=== PATIENT | female | born 1990 | race Caucasian/White ===

== ENCOUNTER 2020-05-15 23:31 | Inpatient (IN) | payer SELFPAY ==
[2020-05-16] MEDS ORDERED: Oxytocin/Lactated Ringers 20 UNIT/1,000 ML BAG IV SCH
[2020-05-16] MEDS ORDERED: Lidocaine 1% 50 ML MDV INJECT ONE
[2020-05-16] MEDS ORDERED: Lidocaine 1.5% with EPINEPHrine 1:200,000 5 ML Amp ONE
[2020-05-16] MEDS ORDERED: Calcium Carbonate 500 MG Tab.Chew PO PRN
[2020-05-16] MEDS ORDERED: Sodium Chloride 0.9% 10 ML Syringe FLUSH PRN
[2020-05-16] MEDS ORDERED: Ampicillin 2 GM in Sodium Chloride 0.9% 100 ML IV ONE ×2
[2020-05-16] MEDS ORDERED: Nalbuphine 10 MG/ML Syringe IVPUSH PRN
[2020-05-16] MEDS: Lactated Ringers 1,000 ML IV SCH ×4 (00:19→09:57)
[2020-05-16] MEDS ORDERED: ePHEDrine 50 MG/ML SDV IVPUSH PRN (01:01)
[2020-05-16] MEDS ORDERED: diphenhydrAMINE 50 MG/ML SDV IVPUSH PRN (01:01)
[2020-05-16] MEDS ORDERED: Bupivacaine/fentaNYL/NS 100 ML Bag EPIDUR PRN (01:01)
[2020-05-16] MEDS ORDERED: fentaNYL 100 MCG/2 ML SDV EPIDUR PRN (01:01)
--- NOTE | 2020-05-16 01:03 | PCM.PREANE ---
Preanesthetic Assessment - Procedure Proposed Procedure: Continuous labor epidural - Anesthesia/Transfusion/Family Hx Anesthesia History: Prior Anesthesia Without Reaction Transfusion History: No Prior Transfusion(s) - Review of Systems General: No Symptoms Pulmonary: No Symptoms Cardiovascular: No Symptoms Gastrointestinal: No Symptoms Neurological: No Symptoms Other: Reports: None - Physical Assessment Vital Signs: Last Vital Signs Temp 97.9 F 05/15/20 23:41 Pulse 98 05/15/20 23:41 Resp 16 05/15/20 23:41 BP 116/79 05/15/20 23:41 Pulse Ox 100 05/15/20 23:41 Height: 1.68 m Weight: 83.007 kg ASA Class: 2 Mental Status: Alert & Oriented x3 Airway Class: Mallampati = 2 Dentition: Reports: Normal Dentition Thyro-Mental Finger Breadths: 3 Mouth Opening Finger Breadths: 3 ROM/Head Extension: Full Lungs: Clear to Auscultation, Normal Respiratory Effort Cardiovascular: Regular Rate, Regular Rhythm - Lab Values: Laboratory Last Values WBC 12.95 K/mm3 (3.98-10.04) H 05/16/20 00:15 RBC 4.33 M/mm3 (3.98-5.22) 05/16/20 00:15 Hgb 10.4 gm/dl (11.2-15.7) L 05/16/20 00:15 Hct 32.7 % (34.1-44.9) L 05/16/20 00:15 MCV 75.5 fl (79.4-94.8) L 05/16/20 00:15 MCH 24.0 pg (25.6-32.2) L 05/16/20 00:15 MCHC 31.8 g/dl (32.2-35.5) L 05/16/20 00:15 RDW Std Deviation 41.1 fL (36.4-46.3) 05/16/20 00:15 Plt Count 326 K/mm3 (182-369) 05/16/20 00:15 MPV 9.7 fl (9.4-12.3) 05/16/20 00:15 Neut % (Auto) 70.6 % (34.0-71.1) 05/16/20 00:15 Lymph % (Auto) 19.6 % (19.3-51.7) 05/16/20 00:15 [place] % (Auto) 8.0 % (4.7-12.5) 05/16/20 00:15 Eos % (Auto) 1.2 (0.7-5.8) 05/16/20 00:15 Baso % (Auto) 0.3 % (0.1-1.2) 05/16/20 00:15 Neut # (Auto) 9.14 K/mm3 (1.56-6.13) H 05/16/20 00:15 Lymph # (Auto) 2.54 K/mm3 (1.18-3.74) 05/16/20 00:15 [place] # (Auto) 1.03 K/mm3 (0.24-0.36) H 05/16/20 00:15 Eos # (Auto) 0.16 K/mm3 (0.04-0.36) 05/16/20 00:15 Baso # (Auto) 0.04 K/mm3 (0.01-0.08) 05/16/20 00:15 COVID-19 ([facility]) Negative (NEGATIVE) 05/16/20 00:25 Blood Type A POSITIVE 05/16/20 00:15 - Allergies Allergies/Adverse Reactions: Allergies Allergy/AdvReac Type Severity Reaction Status Date / Time shellfish derived Allergy Anaphylactic Verified 05/16/20 00:05 Shock - Acknowledgements Anesthesia Type Planned: Epidural Pt an Appropriate Candidate for the Planned Anesthesia: Yes Alternatives and Risks of Anesthesia Discussed w Pt/Guardian: Yes Pt/Guardian Understands and Agrees with Anesthesia Plan: Yes 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: - Infectious Disease History Infectious Disease History: Reports: Chicken Pox - Past Surgical History HEENT Surgical History: Reports: Oral Surgery - SUBSTANCE USE Smoking Status *Q: Never Smoker Recreational Drug Use History: No - HOME MEDS Home Medications: Home Meds Ondansetron [Zofran ODT] 8 mg PO 05/15/20 [History] Vits #93/Iron Fum/FA [ Formula Tablet] 05/15/20 [History] - CURRENT (IN HOUSE) MEDS Current Meds: Current Medications Calcium Carbonate/Glycine (Tums) 1,000 mg PO Q2H PRN PRN Reason: Indigestion Lactated Ringer's (Ringers, Lactated) 1,000 mls @ 100 mls/hr IV ASDIRECTED TARAS Last Admin: 05/16/20 01:00 Dose: 100 mls/hr Documented by: Ampicillin Sodium 1 gm/ Sodium (Chloride) 100 mls @ 200 mls/hr IV Q4H TARAS Oxytocin/Lactated Ringer's (Pitocin In Lr 20 Units/1,000 Ml) 20 unit in 1,000 mls @ 500 mls/hr IV .CONTINUOUS TARAS Nalbuphine HCl (Nubain) 10 mg IVPUSH Q2H PRN PRN Reason: Pain Ondansetron HCl (Zofran) 4 mg IVPUSH Q4H PRN PRN Reason: Nausea/Vomiting Sodium Chloride (Saline Flush) 10 ml FLUSH ASDIRECTED PRN PRN Reason: Keep Vein Open Discontinued Medications Ampicillin Sodium 2 gm/ Sodium (Chloride) 100 mls @ 200 mls/hr IV ONETIME ONE Stop: 05/16/20 00:29 Last Admin: 05/16/20 00:19 Dose: 200 mls/hr Documented by: Lidocaine HCl (Xylocaine 1%) 10 ml INJECT ONETIME ONE Stop: 05/16/20 00:01
[2020-05-16] MEDS: Ampicillin 1 GM in Sodium Chloride 0.9% 100 ML IV SCH ×2 (03:57→08:04)
--- NOTE | 2020-05-16 06:56 | PCM.LDHP ---
L&D History of Present Illness - General Date of Service: 05/16/20 Admit Problem/Dx: Patient Status Order with Admit Dx/Problem 05/15/20 23:41 Patient Status [ADT] Routine 05/16/20 00:01 Patient Status [ADT] Routine Admission Diagnosis/Problem Admission Diagnosis/Problem 05/16/20 06:51 Source of Information: Patient History Limitations: Reports: No Limitations - History of Present Illness Introduction:: 29-year-old -0-0-1 NELLIE 05/23/2020 presented to labor and delivery just before midnight on 05/15/2020 at 38 weeks and 6 days, now 39 weeks 0 days. Patient complaining contractions was 4 cm dilated on presentation to labor and delivery and RN check just now showed cervix 6 centimeters dilated, talk with Dr. Ramos she will see patient as call schedule ends at 0700 hrs. Blood type a positive antibody screen negative on 10/29/2019 hemoglobin 14.6 hematocrit 41.1 and platelets 290,000, rubella positive, syphilis nonreactive, hepatitis B surface antigen nonreactive HIV nonreactive chlamydia probe GC probe negative 02/22/2020 hemoglobin 11.7 platelets 290,001-hour OB glucose screen 117 antibody screen negative GBS positive on 05/09/2020 patient has been given GBS prophylaxis. In labor and delivery. 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: - Infectious Disease History Infectious Disease History: Reports: Chicken Pox - Past Surgical History HEENT Surgical History: Reports: Oral Surgery Social & Family History - Tobacco Use Smoking Status *Q: Never Smoker - Recreational Drug Use Recreational Drug Use: No H&P Review of Systems - Review of Systems: Review Of Systems: See Below General: Reports: No Symptoms HEENT: Reports: No Symptoms Pulmonary: Reports: No Symptoms Cardiovascular: Reports: No Symptoms Gastrointestinal: Reports: No Symptoms Genitourinary: Reports: No Symptoms Musculoskeletal: Reports: No Symptoms Skin: Reports: No Symptoms Psychiatric: Reports: No Symptoms Neurological: Reports: No Symptoms Hematologic/Lymphatic: Reports: No Symptoms Immunologic: Reports: No Symptoms L&D Exam - Exam Exam: See Below - Vital Signs Vital Signs: Last Vital Signs Temp 97.9 F 05/15/20 23:41 Pulse 98 05/15/20 23:41 Resp 16 05/15/20 23:41 BP 116/79 05/15/20 23:41 Pulse Ox 100 05/15/20 23:41 Weight: 183 lb - OB Specific Fundal Height In cm: 39 Contraction Intensity: Mild to Moderate Movement: Active Heart Tones: Present Heart Tones per Min: 140 Heart Rate (FHR) Variability: Moderate (6-25 bmp) Presentation: Vertex - Fulton Score Fulton Score Cervix Position: Posterior Fulton Score Consistency: Medium [place] Score Effacement: >80% [place]on Score Dilation: 3-4 cm Fulton Score 's Station: -1 ,0 Fulton Score Total: 8 - Exam General: Alert, Oriented HEENT: Conjunctiva Clear, Mucosa Moist & [place], Pupils Equal Neck: Supple, Trachea Midline Lungs: Clear to Auscultation, Normal Respiratory Effort Cardiovascular: Regular Rate, Regular Rhythm GI/Abdominal Exam: Normal Bowel Sounds Extremities: Normal Inspection, Non-Tender, No Pedal Edema, Normal Capillary Refill Skin: Warm, Dry, Intact Psychiatric: Alert, Normal Affect, Normal Mood - Patient Data Lab Results Last 24 hrs: Laboratory Results - last 24 hr 05/16/20 05/16/20 05/16/20 Range/Units 00:15 00:15 00:25 WBC 12.95 H (3.98-10.04) K/mm3 RBC 4.33 (3.98-5.22) M/mm3 Hgb 10.4 L (11.2-15.7) gm/dl Hct 32.7 L (34.1-44.9) % MCV 75.5 L (79.4-94.8) fl MCH 24.0 L (25.6-32.2) pg MCHC 31.8 L (32.2-35.5) g/dl RDW Std Deviation 41.1 (36.4-46.3) fL Plt Count 326 (182-369) K/mm3 MPV 9.7 (9.4-12.3) fl Neut % (Auto) 70.6 (34.0-71.1) % Lymph % (Auto) 19.6 (19.3-51.7) % [place] % (Auto) 8.0 (4.7-12.5) % Eos % (Auto) 1.2 (0.7-5.8) Baso % (Auto) 0.3 (0.1-1.2) % Neut # (Auto) 9.14 H (1.56-6.13) K/mm3 Lymph # (Auto) 2.54 (1.18-3.74) K/mm3 [place] # (Auto) 1.03 H (0.24-0.36) K/mm3 Eos # (Auto) 0.16 (0.04-0.36) K/mm3 Baso # (Auto) 0.04 (0.01-0.08) K/mm3 COVID-19 ([facility]) Negative (NEGATIVE) Blood Type A POSITIVE Gel Antibody Screen Negative Result Diagrams: 05/16/20 00:15 - Problem List (1) 39 weeks gestation of SNOMED Code(s): 41411043 ICD Code: Z3A.39 - 39 WEEKS GESTATION OF Status: Acute Current Visit: Yes (2) Carrier of group B Streptococcus SNOMED Code(s): 7728138424244 ICD Code: Z22.330 - CARRIER OF GROUP B STREPTOCOCCUS Status: Acute Current Visit: Yes Problem List Initiated/Reviewed/Updated: No Orders Last 24hrs: Active Orders 24 hr Category Date Time Status Patient Status [ADT] Routine ADT 05/16/20 00:01 Active Activity as Tolerated [RC] PFP Care 05/16/20 00:00 Active Communication Order [RC] ASDIRECTED Care 05/16/20 00:00 Active Heart Tones [RC] ASDIRECTED Care 05/16/20 00:02 Active Non Stress Test [RC] PER UNIT ROUTINE Care 05/15/20 23:41 Active Notify Provider [RC] ASDIRECTED Care 05/16/20 01:01 Active Notify Provider [RC] PFP Care 05/16/20 00:00 Active Notify Provider [RC] PRN Care 05/16/20 00:00 Active Peripheral IV Care [RC] . DIRECTED Care 05/16/20 00:02 Active Vital Signs [RC] PER UNIT ROUTINE Care 05/15/20 23:41 Active Regular Diet [DIET] Diet 05/16/20 Breakfast Active PATIENT RETYPE [BBK] Routine Lab 05/16/20 01:00 Ordered RAPID PLASMA REAGIN,RPR [CHEM] Routine Lab 05/16/20 00:15 Received Ampicillin 1 gm Med 05/16/20 04:00 Active Sodium Chloride 0.9% [Normal Saline] 100 ml IV Q4H Bupivacaine/fentaNYL/NS [fentaNYL/Bupivacaine/NS 2 MCG- Med 05/16/20 01:01 Active 0.125% 100 ML] 100 ml EPIDUR ASDIRECTED PRN Calcium Carbonate [Tums] Med 05/16/20 00:00 Active 1,000 mg PO Q2H PRN Lactated Ringers [Ringers, Lactated] 1,000 ml Med 05/16/20 00:00 Active IV ASDIRECTED Nalbuphine [Nubain] Med 05/16/20 00:00 Active 10 mg IVPUSH Q2H PRN Ondansetron [Zofran] Med 05/16/20 00:00 Active 4 mg IVPUSH Q4H PRN Oxytocin/Lactated Ringers [Pitocin in LR 20 Units/1,000 Med 05/16/20 00:00 Active ML] 20 unit in 1,000 ml IV .CONTINUOUS Sodium Chloride 0.9% [Saline Flush] Med 05/16/20 00:00 Active 10 ml FLUSH ASDIRECTED PRN diphenhydrAMINE [Benadryl] Med 05/16/20 01:01 Active 25 mg IVPUSH Q6H PRN ePHEDrine [ePHEDrine sulfate] Med 05/16/20 01:01 Active 5 mg IVPUSH ASDIRECTED PRN fentaNYL [Sublimaze] Med 05/16/20 01:01 Active 100 mcg EPIDUR Q3H PRN Electronic Heart Tones Ext w TOCO [WOMSER] Oth 05/16/20 00:00 Ordered Routine Electronic Heart Tones Internal [WOMSER] Per Unit Oth 05/16/20 00:00 Ordered Routine Peripheral IV Insertion Adult [OM.PC] Routine Oth 05/16/20 00:00 Ordered Resuscitation Status Routine Resus Stat 05/15/20 23:41 Ordered Medication Orders Calcium Carbonate/Glycine (Tums) 1,000 mg PO Q2H PRN PRN Reason: Indigestion Diphenhydramine HCl (Benadryl) 25 mg IVPUSH Q6H PRN PRN Reason: pruritis Ephedrine Sulfate (Ephedrine Sulfate) 5 mg IVPUSH ASDIRECTED PRN PRN Reason: Hypotension Fentanyl (Sublimaze) 100 mcg EPIDUR Q3H PRN PRN Reason: Pain Last Admin: 05/16/20 01:15 Dose: 100 mcg Documented by: JUAN FRANCISCO Fentanyl/Bupivacaine HCl (Fentanyl/Bupivacaine/Ns 2 Mcg-0.125% 100 Ml) 100 ml EPIDUR ASDIRECTED PRN PRN Reason: Pain Last Admin: 05/16/20 01:14 Dose: 100 ml Documented by: JUAN FRANCISCO Lactated Ringer's (Ringers, Lactated) 1,000 mls @ 100 mls/hr IV ASDIRECTED TARAS Last Admin: 05/16/20 01:55 Dose: 100 mls/hr Documented by: JUAN FRANCISCO Infusion: 05/16/20 01:55 Dose: 100 mls/hr Documented by: JUAN FRANCISCO Admin: 05/16/20 01:00 Dose: 100 mls/hr Documented by: JUAN FRANCISCO Infusion: 05/16/20 01:00 Dose: 100 mls/hr Documented by: JUAN FRANCISCO Admin: 05/16/20 00:19 Dose: 100 mls/hr Documented by: JUAN FRANCISCO Ampicillin Sodium 1 gm/ Sodium (Chloride) 100 mls @ 200 mls/hr IV Q4H [facility] Last Admin: 05/16/20 03:57 Dose: 200 mls/hr Documented by: JUAN FRANCISCO Oxytocin/Lactated Ringer's (Pitocin In Lr 20 Units/1,000 Ml) 20 unit in 1,000 mls @ 500 mls/hr IV .CONTINUOUS TARAS Nalbuphine HCl (Nubain) 10 mg IVPUSH Q2H PRN PRN Reason: Pain Ondansetron HCl (Zofran) 4 mg IVPUSH Q4H PRN PRN Reason: Nausea/Vomiting Sodium Chloride (Saline Flush) 10 ml FLUSH ASDIRECTED PRN PRN Reason: Keep Vein Open Plan labor and delivery, patient turned over to Dr. Ramos.
[2020-05-16] MEDS ORDERED: Oxytocin/Lactated Ringers 10 UNIT/1,000 ML BAG IV SCH ×2 (08:30→10:00)
[2020-05-16] MEDS ORDERED: ceFAZolin 2 GM in Premix Bag 1 BAG IV ONE (10:52)
--- NOTE | 2020-05-16 10:54 | PCM.DEL ---
L & D Note - General Info Date of Service: 05/16/20 - Delivery Note Labor: Spontaneous Delivery Outcome: Livebirth Delivery Method: Spontaneous Vaginal Delivery-Single Delivery Mode: Spontaneous Presentation: Left Occiput Anterior (BUCK) Nuchal Cord: None Anesthesia Type: Epidural Amniotic Fluid Description: Clear Episiotomy Type: None Laceration: 2nd Degree Suture type: Vicryl Suture size: 2-0 Placenta: Manual Removal Cord: 3 Vessels Estimated Blood Loss: 200 Resuscitation Needed: Yes [place]: Bulb Syringe, Stimulated, Warmed, Herreid Used, Warmer Used Delivery Comments (Free Text/Narrative):: Patient found to be complete and began pushing. With maternal pushing effort head delivered from BUCK presentation. No nuchal cord present. With gentle downward traction shoulders and body delivered. Infant placed on maternal abdomen. Cord clamped and cut. Cord blood obtained. Inspection of perineum showed 2nd degree laceration. This was repaired with a 2-0 vicryl in typical fashion. After about 20 minutes placenta had not yet delivered. Pitocin stopped. Around 25 minutes after delivery manual extraction of placenta performed. All of placenta able to be removed. Patient given 2 grams of ancef to cover manual removal. Pitocin restarted - General Info Date of Service: 05/16/20 - Patient Data Vitals - Most Recent: Last Vital Signs Temp 36.6 C 05/15/20 23:41 Pulse 98 05/15/20 23:41 Resp 16 05/15/20 23:41 BP 116/79 05/15/20 23:41 Pulse Ox 100 05/15/20 23:41 Weight - Most Recent: 83.007 kg I&O - Last 24 Hours: Intake & Output 05/15/20 05/16/20 05/16/20 22:59 06:59 14:59 Intake Total 2200 60 Balance 2200 60 - Problem List & Annotations (1) 39 weeks gestation of SNOMED Code(s): 56281819 Code(s): Z3A.39 - 39 WEEKS GESTATION OF Status: Acute Current Visit: Yes (2) Carrier of group B Streptococcus SNOMED Code(s): 1034482785909 Code(s): Z22.330 - CARRIER OF GROUP B STREPTOCOCCUS Status: Acute Current Visit: Yes (3) Retained placenta SNOMED Code(s): 955433700 Code(s): O73.0 - RETAINED PLACENTA WITHOUT HEMORRHAGE Status: Acute Curre nt Visit: Yes Qualifiers: Retained placenta detail: complete placenta Qualified Code(s): O73.0 - Retained placenta without hemorrhage (4) Vaginal delivery SNOMED Code(s): 250311545 Code(s): O80 - ENCOUNTER FOR FULL-TERM UNCOMPLICATED DELIVERY Status: Acute Current Visit: Yes - Problem List Review Problem List Initiated/Reviewed/Updated: Yes - My Orders Last 24 Hours: My Active Orders 05/16/20 08:30 Oxytocin/Lactated Ringers [Pitocin in LR 10 Units/1,000 ML] 10 unit in 1,000 ml IV TITRATE 05/16/20 10:00 Oxytocin/Lactated Ringers [Pitocin in LR 10 Units/1,000 ML] 10 unit in 1,000 ml IV ASDIRECTED 05/16/20 10:52 Patient Status Manage Transfer [TRANSFER] Routine ceFAZolin [Ancef] 2 gm Premix Bag 1 bag IV ONETIME - Assessment Assessment:: PPD#0 - Plan Plan:: * Routine cares * Ancef given for placenta removal. Monitor bleeding * Breast feeding * Discharge home in 1-2 days
[2020-05-16] MEDS ORDERED: ceFAZolin/Dextrose,Iso-Osmotic 2 GM/50 ML Duplex Bag IV ONE (10:59)
[2020-05-16] MEDS ORDERED: Benzocaine/Menthol 20%-0.5% Spray 56 GM Canister TOP PRN (11:01)
[2020-05-16] MEDS ORDERED: Docusate Sodium 100 MG Cap PO PRN (11:01)
[2020-05-16] MEDS ORDERED: Acetaminophen 325 MG Tab PO PRN (11:01)
[2020-05-16] MEDS ORDERED: Ondansetron 4 MG/2 ML SDV IVPUSH PRN ×2 (12:02)
[2020-05-16] MEDS ORDERED: Ondansetron 4 MG/2 ML SDV ONE (12:03)
[2020-05-16] MEDS: Witch Hazel Medicated Pads 40/Jar TOP PRN (13:43)
[2020-05-16] MEDS: Ibuprofen 600 MG Tab PO PRN (17:50)
[2020-05-17] MEDS: Ibuprofen 600 MG Tab PO PRN (06:16)
--- NOTE | 2020-05-17 06:58 | PCM.DCSUM1 ---
Discharge Summary - Discharge Data Discharge Date: 05/17/20 Discharge Disposition: Home, Self-Care 01 Condition: Good - Referral to Home Health Primary Care Physician: Marc Chadwick MD - Discharge Diagnosis/Problem(s) (1) 39 weeks gestation of SNOMED Code(s): 09761327 ICD Code: Z3A.39 - 39 WEEKS GESTATION OF Status: Acute Current Visit: Yes (2) Carrier of group B Streptococcus SNOMED Code(s): 9792293925121 ICD Code: Z22.330 - CARRIER OF GROUP B STREPTOCOCCUS Status: Acute Current Visit: Yes (3) Retained placenta SNOMED Code(s): 616229977 ICD Code: O73.0 - RETAINED PLACENTA WITHOUT HEMORRHAGE Status: Acute Current Visit: Yes Qualifiers: Retained placenta detail: complete placenta Qualified Code(s): O73.0 - Retained placenta without hemorrhage (4) Vaginal delivery SNOMED Code(s): 785066531 ICD Code: O80 - ENCOUNTER FOR FULL-TERM UNCOMPLICATED DELIVERY Status: Acute Current Visit: Yes - Patient Summary/Data Complications: None Consults: None Recommended Follow-up Testing/Procedures: Follow up in 3 weeks for check Hospital Course: 29 y/o at 38 6/7 wks who presented in labor. Progressed well to complete dilation and had uncomplicated vaginal delivery. Did, however, have a retained placenta which required manual removal. See delivery note. did well and was discharged home on PPD#1 - Patient Instructions Diet: Regular Diet as Tolerated Activity: As Tolerated Activity, Other: Pelvic rest for 6 weeks Driving: May Drive Today Showering/Bathing: May Shower Showering/Bathing, Other: May Bathe Notify Provider of: Fever, Increased Pain, Swelling and Redness, Drainage, Nausea and/or Vomiting - Discharge Plan *PRESCRIPTION DRUG MONITORING PROGRAM REVIEWED*: No *COPY OF PRESCRIPTION DRUG MONITORING REPORT IN PATIENT PAIGE: No Home Medications: Home Meds Vits #93/Iron Fum/FA [ Formula Tablet] 05/15/20 [History] Acetaminophen [Tylenol] 650 mg PO Q4H PRN tablet 05/17/20 [Rx] Ibuprofen [Motrin] 600 mg PO Q4H PRN tablet 05/17/20 [Rx] Referrals: June Ramos MD [Physician] - (3 weeks for check - can be telehealth) - Discharge Summary/Plan Comment DC Time >30 min.: No - Patient Data Vitals - Most Recent: Last Vital Signs Temp 36.5 C 05/17/20 04:15 Pulse 67 05/17/20 04:15 Resp 14 05/17/20 04:15 BP 117/73 05/17/20 04:15 Pulse Ox 96 05/17/20 04:15 Weight - Most Recent: 83.007 kg I&O - Last 24 hours: Intake & Output 05/16/20 05/16/20 05/17/20 14:59 22:59 06:59 Intake Total 300 Balance 300 Lab Results - Last 24 hrs: Laboratory Results - last 24 hr 05/16/20 Range/Units 00:15 RPR Non-reactive (NONREACTIVE) Med Orders - Current: Current Medications Acetaminophen (Tylenol) 650 mg PO Q4H PRN PRN Reason: mild pain or fever Last Admin: 05/16/20 21:26 Dose: 650 mg Documented by: Benzocaine/Menthol (Dermoplast Pain Relief [place]) 0 gm TOP ASDIRECTED PRN PRN Reason: Perineal Comfort Measure Last Admin: 05/16/20 13:43 Dose: 56 gm Documented by: Docusate Sodium (Colace) 100 mg PO BID PRN PRN Reason: Constipation Last Admin: 05/17/20 06:16 Dose: 100 mg Documented by: Ibuprofen (Motrin) 600 mg PO Q4H PRN PRN Reason: Mild pain or fever Last Admin: 05/17/20 06:16 Dose: 600 mg Documented by: Ondansetron HCl (Zofran) 4 mg IVPUSH Q8H PRN PRN Reason: Nausea Last Admin: 05/16/20 12:09 Dose: 4 mg Documented by: Tiffany Valadez (Tucks) 1 pad TOP ASDIRECTED PRN PRN Reason: Perineal Comfort Measure Last Admin: 05/16/20 13:43 Dose: 1 container Documented by: Discontinued Medications Calcium Carbonate/Glycine (Tums) 1,000 mg PO Q2H PRN PRN Reason: Indigestion Cefazolin Sodium/Dextrose (Ancef) Confirm Administered Dose 2 gm IV .STK-MED ONE Stop: 05/16/20 11:00 Last Admin: 05/16/20 13:44 Dose: Not Given Documented by: Diphenhydramine HCl (Benadryl) 25 mg IVPUSH Q6H PRN PRN Reason: pruritis Ephedrine Sulfate (Ephedrine Sulfate) 5 mg IVPUSH ASDIRECTED PRN PRN Reason: Hypotension Fentanyl (Sublimaze) 100 mcg EPIDUR Q3H PRN PRN Reason: Pain Last Admin: 05/16/20 01:15 Dose: 100 mcg Documented by: Fentanyl/Bupivacaine HCl (Fentanyl/Bupivacaine/Ns 2 Mcg-0.125% 100 Ml) 100 ml EPIDUR ASDIRECTED PRN PRN Reason: Pain Last Admin: 05/16/20 01:14 Dose: 100 ml Documented by: Lactated Ringer's (Ringers, Lactated) 1,000 mls @ 100 mls/hr IV ASDIRECTED TARAS Last Admin: 05/16/20 09:57 Dose: 100 mls/hr Documented by: Ampicillin Sodium 2 gm/ Sodium (Chloride) 100 mls @ 200 mls/hr IV ONETIME ONE Stop: 05/16/20 00:29 Last Admin: 05/16/20 00:19 Dose: 200 mls/hr Documented by: Ampicillin Sodium 1 gm/ Sodium (Chloride) 100 mls @ 200 mls/hr IV Q4H TARAS Last Admin: 05/16/20 08:04 Dose: 200 mls/hr Documented by: Oxytocin/Lactated Ringer's (Pitocin In Lr 20 Units/1,000 Ml) 20 unit in 1,000 mls @ 500 mls/hr IV .CONTINUOUS TARAS Oxytocin/Lactated Ringer's (Pitocin In Lr 10 Units/1,000 Ml) 10 unit in 1,000 mls @ 12 mls/hr IV TITRATE TARAS; Protocol Oxytocin/Lactated Ringer's (Pitocin In Lr 10 Units/1,000 Ml) 10 unit in 1,000 mls @ 3,000 mls/hr IV ASDIRECTED TARAS Last Admin: 05/16/20 10:41 Dose: 500 munits/min, 3,000 mls/hr Documented by: Cefazolin Sodium/Dextrose 2 gm (/ Premix) 50 mls @ 100 mls/hr IV ONETIME ONE Stop: 05/16/20 11:21 Last Admin: 05/16/20 11:06 Dose: 100 mls/hr Documented by: Lidocaine HCl (Xylocaine 1%) 10 ml INJECT ONETIME ONE Stop: 05/16/20 00:01 Last Admin: 05/16/20 13:44 Dose: Not Given Documented by: Lidocaine/Epinephrine (Xylocaine-Mpf 1.5% W/Epinephrine 1:200,000) 5 ml .ROUTE .STK-MED ONE Stop: 05/16/20 00:01 Nalbuphine HCl (Nubain) 10 mg IVPUSH Q2H PRN PRN Reason: Pain Ondansetron HCl (Zofran) 4 mg IVPUSH Q4H PRN PRN Reason: Nausea/Vomiting Ondansetron HCl (Zofran) Confirm Administered Dose 4 mg .ROUTE .STK-MED ONE Stop: 05/16/20 12:04 Last Admin: 05/16/20 13:43 Dose: Not Given Documented by: Sodium Chloride (Saline Flush) 10 ml FLUSH ASDIRECTED PRN PRN Reason: Keep Vein Open
--- NOTE | 2020-05-17 06:58 | PCM.PNPP ---
- General Info Date of Service: 05/17/20 Functional Status: Reports: Pain Controlled, Tolerating Diet, Ambulating, Urinating - Review of Systems General: Reports: No Symptoms Pulmonary: Reports: No Symptoms Cardiovascular: Reports: No Symptoms Gastrointestinal: Reports: No Symptoms Genitourinary: Reports: No Symptoms Musculoskeletal: Reports: No Symptoms Neurological: Reports: No Symptoms - Patient Data Vital Signs - Most Recent: Last Vital Signs Temp 36.5 C 05/17/20 04:15 Pulse 67 05/17/20 04:15 Resp 14 05/17/20 04:15 BP 117/73 05/17/20 04:15 Pulse Ox 96 05/17/20 04:15 Weight - Most Recent: 83.007 kg I&O - Last 24 Hours: Intake & Output 05/16/20 05/16/20 05/17/20 14:59 22:59 06:59 Intake Total 300 Balance 300 Lab Results - Last 24 Hours: Laboratory Results - last 24 hr 05/16/20 Range/Units 00:15 RPR Non-reactive (NONREACTIVE) Med Orders - Current: Current Medications Acetaminophen (Tylenol) 650 mg PO Q4H PRN PRN Reason: mild pain or fever Last Admin: 05/16/20 21:26 Dose: 650 mg Documented by: Benzocaine/Menthol (Dermoplast Pain Relief [place]) 0 gm TOP ASDIRECTED PRN PRN Reason: Perineal Comfort Measure Last Admin: 05/16/20 13:43 Dose: 56 gm Documented by: Docusate Sodium (Colace) 100 mg PO BID PRN PRN Reason: Constipation Last Admin: 05/17/20 06:16 Dose: 100 mg Documented by: Ibuprofen (Motrin) 600 mg PO Q4H PRN PRN Reason: Mild pain or fever Last Admin: 05/17/20 06:16 Dose: 600 mg Documented by: Ondansetron HCl (Zofran) 4 mg IVPUSH Q8H PRN PRN Reason: Nausea Last Admin: 05/16/20 12:09 Dose: 4 mg Documented by: Tiffany Valadez (Tais) 1 pad TOP ASDIRECTED PRN PRN Reason: Perineal Comfort Measure Last Admin: 05/16/20 13:43 Dose: 1 container Documented by: Discontinued Medications Calcium Carbonate/Glycine (Tums) 1,000 mg PO Q2H PRN PRN Reason: Indigestion Cefazolin Sodium/Dextrose (Ancef) Confirm Administered Dose 2 gm IV .STK-MED ONE Stop: 05/16/20 11:00 Last Admin: 05/16/20 13:44 Dose: Not Given Documented by: Diphenhydramine HCl (Benadryl) 25 mg IVPUSH Q6H PRN PRN Reason: pruritis Ephedrine Sulfate (Ephedrine Sulfate) 5 mg IVPUSH ASDIRECTED PRN PRN Reason: Hypotension Fentanyl (Sublimaze) 100 mcg EPIDUR Q3H PRN PRN Reason: Pain Last Admin: 05/16/20 01:15 Dose: 100 mcg Documented by: Fentanyl/Bupivacaine HCl (Fentanyl/Bupivacaine/Ns 2 Mcg-0.125% 100 Ml) 100 ml EPIDUR ASDIRECTED PRN PRN Reason: Pain Last Admin: 05/16/20 01:14 Dose: 100 ml Documented by: Lactated Ringer's (Ringers, Lactated) 1,000 mls @ 100 mls/hr IV ASDIRECTED REPLACED BY [facility] Last Admin: 05/16/20 09:57 Dose: 100 mls/hr Documented by: Ampicillin Sodium 2 gm/ Sodium (Chloride) 100 mls @ 200 mls/hr IV ONETIME ONE Stop: 05/16/20 00:29 Last Admin: 05/16/20 00:19 Dose: 200 mls/hr Documented by: Ampicillin Sodium 1 gm/ Sodium (Chloride) 100 mls @ 200 mls/hr IV Q4H REPLACED BY [facility] Last Admin: 05/16/20 08:04 Dose: 200 mls/hr Documented by: Oxytocin/Lactated Ringer's (Pitocin In Lr 20 Units/1,000 Ml) 20 unit in 1,000 mls @ 500 mls/hr IV .CONTINUOUS TARAS Oxytocin/Lactated Ringer's (Pitocin In Lr 10 Units/1,000 Ml) 10 unit in 1,000 mls @ 12 mls/hr IV TITRATE TARAS; Protocol Oxytocin/Lactated Ringer's (Pitocin In Lr 10 Units/1,000 Ml) 10 unit in 1,000 mls @ 3,000 mls/hr IV ASDIRECTED REPLACED BY [facility] Last Admin: 05/16/20 10:41 Dose: 500 munits/min, 3,000 mls/hr Documented by: Cefazolin Sodium/Dextrose 2 gm (/ Premix) 50 mls @ 100 mls/hr IV ONETIME ONE Stop: 05/16/20 11:21 Last Admin: 05/16/20 11:06 Dose: 100 mls/hr Documented by: Lidocaine HCl (Xylocaine 1%) 10 ml INJECT ONETIME ONE Stop: 05/16/20 00:01 Last Admin: 05/16/20 13:44 Dose: Not Given Documented by: Lidocaine/Epinephrine (Xylocaine-Mpf 1.5% W/Epinephrine 1:200,000) 5 ml .ROUTE .STK-MED ONE Stop: 05/16/20 00:01 Nalbuphine HCl (Nubain) 10 mg IVPUSH Q2H PRN PRN Reason: Pain Ondansetron HCl (Zofran) 4 mg IVPUSH Q4H PRN PRN Reason: Nausea/Vomiting Ondansetron HCl (Zofran) Confirm Administered Dose 4 mg .ROUTE .STK-MED ONE Stop: 05/16/20 12:04 Last Admin: 05/16/20 13:43 Dose: Not Given Documented by: Sodium Chloride (Saline Flush) 10 ml FLUSH ASDIRECTED PRN PRN Reason: Keep Vein Open - Interaction Disposition, : in Room with Family Infant Interaction: Holding Infant Feeding: Attempted ; Nursed Fair/Poor Support Person: - Recovery Exam Fundal Tone: Firm Fundal Level: At Umbilicus Fundal Placement: Midline Lochia Amount: Small Lochia Color: Rubra/Red Perineum Description: Intact, Minimal Bruising/Swelling Episiotomy/Laceration: None Bladder Status: Voiding Urinary Elimination: Voided - Exam General: Alert, Oriented, Cooperative GI/Abdominal Exam: Soft, Non-Tender Extremities: Normal Inspection Skin: Warm, Dry, Intact - Problem List & Annotations (1) 39 weeks gestation of SNOMED Code(s): 51654926 Code(s): Z3A.39 - 39 WEEKS GESTATION OF Status: Acute Current Visit: Yes (2) Carrier of group B Streptococcus SNOMED Code(s): 8810441068275 Code(s): Z22.330 - CARRIER OF GROUP B STREPTOCOCCUS Status: Acute Current Visit: Yes (3) Retained placenta SNOMED Code(s): 955716966 Code(s): O73.0 - RETAINED PLACENTA WITHOUT HEMORRHAGE Status: Acute Current Visit: Yes Qualifiers: Retained placenta detail: complete placenta Qualified Code(s): O73.0 - Retained placenta without hemorrhage (4) Vaginal delivery SNOMED Code(s): 883404545 Code(s): O80 - ENCOUNTER FOR FULL-TERM UNCOMPLICATED DELIVERY Status: Acute Current Visit: Yes - Problem List Review Problem List Initiated/Reviewed/Updated: Yes - My Orders Last 24 Hours: My Active Orders 05/16/20 Lunch Regular Diet [DIET] 05/16/20 11:01 Acetaminophen [Tylenol] 650 mg PO Q4H PRN Benzocaine/Menthol [Dermoplast Pain Relief [place]] See Dose Instructions TOP ASDIRECTED PRN Docusate Sodium [Colace] 100 mg PO BID PRN Ibuprofen [Motrin] 600 mg PO Q4H PRN witch Ann [Tucks] 1 pad TOP ASDIRECTED PRN Heat Therapy [OM.PC] PRN 05/16/20 11:01 Activity as Tolerated [RC] PER UNIT ROUTINE Vital Signs [RC] 03,09,15,21 Assess Lochia [WOMSER] Per Unit Routine Assess Uterine Involution [WOMSER] Per Unit Routine Breast Pump [WOMSER] Per Unit Routine Ice Therapy [OM.PC] Per Unit Routine Perineal Care [OM.PC] Per Unit Routine Peripheral IV Discontinue [OM.PC] Routine Sitz Bath [OM.PC] Per Unit Routine 05/16/20 12:02 Ondansetron [Zofran] 4 mg IVPUSH Q8H PRN 05/17/20 06:57 Ready for Discharge [RC] PER UNIT ROUTINE 05/17/20 11:01 Heat Therapy [OM.PC] PRN - Assessment Assessment:: PPD#1 - Plan Plan:: * Routine cares * Breast feeding * Discharge home today
--- NOTE | 2020-05-17 07:43 | PCM48HPAN ---
Post Anesthesia Note - EVALUATION WITHIN 48HRS OF ANESTHETIC Vital Signs in Normal Range: Yes Patient Participated in Evaluation: Yes Respiratory Function Stable: Yes Airway Patent: Yes Cardiovascular Function Stable: Yes Hydration Status Stable: Yes Pain Control Satisfactory: Yes Nausea and Vomiting Control Satisfactory: Yes Mental Status Recovered: Yes Vital Signs: Last Vital Signs Temp 36.5 C 05/17/20 04:15 Pulse 67 05/17/20 04:15 Resp 14 05/17/20 04:15 BP 117/73 05/17/20 04:15 Pulse Ox 96 05/17/20 04:15
[2020-05-17] MEDS: Witch Hazel Medicated Pads 40/Jar TOP PRN (08:24)
== END 2020-05-17 11:53 | disposition home or self-care (01) | DRG 807 ==
LOC: JD.OBCHECK 23:31 → JD.OB 23:35 → JD.OBCHECK 05-16 00:01 → JD.OB 05-16 00:11 → OBSVTOIN 05-16 10:22 → JD.OB 05-16 10:23
PROVIDERS: ADMIT Obstetrics & Gynecology; ATTEND Obstetrics & Gynecology
PROC: 10E0XZZ Delivery of Products of Conception, External Approach (ICD-10-PCS; principal; 2020-05-16)
PROC: 0KQM0ZZ Repair Perineum Muscle, Open Approach (ICD-10-PCS; 2020-05-16)
PROC: 3E0R3BZ Introduction of Anesthetic Agent into Spinal Canal, Percutaneous Approach (ICD-10-PCS; 2020-05-16)
DX: O99.824 Streptococcus B carrier state complicating childbirth (principal); Z37.0 Single live birth; Z3A.39 39 weeks gestation of pregnancy; O73.0 Retained placenta without hemorrhage; Z91.013 Allergy to seafood; O70.1 Second degree perineal laceration during delivery; Z11.59 Encounter for screening for other viral diseases
CPT/HCPCS: 01967; 36415; 51702; 59025; 59409; 85025; 86592; 86850; 86900; 86901; A9270-GY; J0290; J0690; J2405; J2590; J3010; J7050; J7120; U0002